=== PATIENT | female | born 1960 | race Hispanic/Latino ===

== ENCOUNTER → 2017-08-24 | Outpatient (CLI) | payer BC ==
[~2017-08-24] MED LIST: ASCO10007 PO; ASPI-555 PO; BETA2500 PO; BIOT10005 PO; CETI-101 PO; CHOL200074 PO; COD1CAPS7 PO; CRAN1CAP5 PO; CYAN10009 PO; CYAN100T PO; CYCL30DR OP; FLUT16H NASAL; GLUC-114 PO; GLUC-206 PO; LATA2.5D2 OU; LOSA50TA37 PO; MAGN400C PO; MECL-111 PO; TOLT2TAB PO; UBID50TA3 PO; VITA100049 PO
== END ==
LOC: LAB 09:30
PROVIDERS: ATTEND Internal Medicine
DX: Z11.59 Encounter for screening for other viral diseases (principal); R19.7 Diarrhea, unspecified
CPT/HCPCS: 36415; 82784; 83516; 87520

== ENCOUNTER 2017-09-15 07:28 | Day surgery (SDC) | payer BC ==
[~2017-09-15] VITALS: Ht 152.4 cm; Wt 75.3 kg
[~2017-09-15 07:28] MED LIST changes: +SODIUM CHLORIDE 0.9% 1000ML 1,000 ML IV ONE
[2017-09-15 08:36] VITALS: BP 151/70
== END 2017-09-15 10:15 ==
LOC: DAH 07:28 → ENDO 07:28
PROVIDERS: ATTEND Internal Medicine
DX: K63.89 Other specified diseases of intestine (principal); I10 Essential (primary) hypertension
CPT/HCPCS: 45380; A4606; J7030

== ENCOUNTER → 2018-05-09 | Outpatient (CLI) | payer BC ==
[~2018-05-09] MED LIST changes: +LOSA50TA25 PO; -LOSA50TA37 PO; -SODIUM CHLORIDE 0.9% 1000ML 1,000 ML IV ONE
[2018-05-09 17:16] LABS: CREATININE 0.9 mg/dL (0.5-1.5)
== END | disposition home or self-care (01) ==
LOC: LAB 16:35
PROVIDERS: ATTEND Neurological Surgery
DX: M54.16 Radiculopathy, lumbar region (principal); Z72.89 Other problems related to lifestyle
CPT/HCPCS: 36415; 82565; 84520

== ENCOUNTER → 2018-05-23 | Outpatient (CLI) | payer BC ==
[~2018-05-23] MED LIST changes: +GADODIAMIDE 10 MMOL/20 ML ML IV ONE
== END | disposition home or self-care (01) ==
LOC: RAH 12:06
PROVIDERS: ATTEND Neurological Surgery
DX: M51.17 Intervertebral disc disorders with radiculopathy, lumbosacral region (principal); M47.27 Other spondylosis with radiculopathy, lumbosacral region; M48.07 Spinal stenosis, lumbosacral region
CPT/HCPCS: 72158; A9579

== ENCOUNTER → 2018-09-26 | Outpatient (CLI) | payer BC ==
[~2018-09-26] VITALS: Ht 152.4 cm; Wt 74.8 kg
[~2018-09-26] MED LIST changes: +CYAN-52 PO; -CYAN10009 PO; -CYAN100T PO; +CYAN100T3 PO; -GADODIAMIDE 10 MMOL/20 ML ML IV ONE; -LOSA50TA25 PO; +LOSA50TA64 PO; +REGADENOSON 0.4 MG/5 ML PF SYG IVP SCH
== END | disposition home or self-care (01) ==
LOC: SHCH 09:12
PROVIDERS: ATTEND Internal Medicine Cardiovascular Disease
DX: R07.9 Chest pain, unspecified (principal)
CPT/HCPCS: 78452; 93017; 96374; A9500 ×2; J2785

== ENCOUNTER → 2020-08-14 | Outpatient (CLI) | payer BC ==
[~2020-08-14] MED LIST changes: +ASCO100031 PO; -ASCO10007 PO; -ASPI-555 PO; +ASPI-556 PO; -BETA2500 PO; -CETI-101 PO; +CETI-89 PO; +COD1CAPS16 PO; -COD1CAPS7 PO; -CYAN100T3 PO; +CYAN100T45 PO; +GADODIAMIDE 10 MMOL/20 ML VIAL IV ONE; +LATA2.5D14 OU; -LATA2.5D2 OU; -MECL-111 PO; +MECL-160 PO; -REGADENOSON 0.4 MG/5 ML PF SYG IVP SCH; +[UNRECOGNIZED DRUG - CODE] PO
== END | disposition home or self-care (01) ==
LOC: RAH 10:00
PROVIDERS: ATTEND Case Manager/Care Coordinator
DX: M47.22 Other spondylosis with radiculopathy, cervical region (principal); M48.02 Spinal stenosis, cervical region
CPT/HCPCS: 72156; A9579

== ENCOUNTER 2020-10-26 23:55 | Emergency (ER) | payer BC ==
[~2020-10-26 23:55] MED LIST changes: +BEPO10DR OP; +BILB100C PO; -CETI-89 PO; -CYAN100T45 PO; +DIPH-706 PO; -GADODIAMIDE 10 MMOL/20 ML VIAL IV ONE; +GING550C5 PO; -GLUC-114 PO; -GLUC-206 PO; +LORA10TA7 PO; -MECL-160 PO; +OMEP40CA13 PO; +RIBO100T5 PO; +SIME125C PO; +SOLI5TAB6 PO; -TOLT2TAB PO; +[UNRECOGNIZED DRUG - CODE] PO; +[UNRECOGNIZED DRUG - OTHER] PO; +[UNRECOGNIZED DRUG - OTHER] PO
[2020-10-27 00:49] LABS: BASOPHILS % (AUTO) 0.2 % (0.0-5.0); EOSINOPHILS % (AUTO) 0.3 % (0.0-8.0); HEMATOCRIT 38.9 % (36-48); LYMPHOCYTES % (AUTO) 8.3 % (21.0-51.0); MEAN CORPUSCULAR HEMOGLOBIN 30.6 pg (27.0-33.0); MEAN CORPUSCULAR HGB CONC 31.9 g/dL (32.0-36.0); MONOCYTES % (AUTO) 7.2 % (3.0-13.0); NEUTROPHILS % (AUTO) 83.6 % (40.0-77.0); PLATELET COUNT (AUTO) 288 K/uL (130-400); RED BLOOD CELL COUNT(AUTO) 4.05 MIL/uL (4.00-5.50); RED CELL DISTRIBUTION WIDTH 12.8 % (11.0-15.5); WHITE BLOOD COUNT (AUTO) 21.4 K/uL (4.8-10.8)
[2020-10-27 00:54] LABS: POTASSIUM 4.2 mmol/L (3.5-5.1)
[2020-10-27 00:59] LABS: ALBUMIN 4.4 g/dL (3.5-5.0); BILIRUBIN,TOTAL 0.3 mg/dL (0.2-1.0); TOTAL PROTEIN, SERUM 8.4 g/dL (6.0-8.3)
[2020-10-27] MEDS ORDERED: METOCLOPRAMIDE 10 MG/2 ML VIAL ONE (01:10)
[2020-10-27] MEDS ORDERED: PANTOPRAZOLE 40 MG/VIAL ONE (01:11)
[2020-10-27] MEDS ORDERED: FAMOTIDINE/PF 20 MG/2 ML VIAL IV ONE (01:12)
[2020-10-27] MEDS ORDERED: SODIUM CHLORIDE 0.9% 1000ML 1,000 ML IV ONE (01:18)
[2020-10-27] MEDS ORDERED: IOHEXOL-350 75 ML VIAL IV ONE (04:09)
[2020-10-27 04:12] LABS: BASOPHILS % (AUTO) 0.3 % (0.0-5.0); EOSINOPHILS % (AUTO) 0.4 % (0.0-8.0); LYMPHOCYTES % (AUTO) 13.1 % (21.0-51.0); MEAN CORPUSCULAR HEMOGLOBIN 30.9 pg (27.0-33.0); MEAN CORPUSCULAR HGB CONC 32.7 g/dL (32.0-36.0); MEAN CORPUSCULAR VOLUME 94.3 fL (79-99); MONOCYTES % (AUTO) 6.4 % (3.0-13.0); NEUTROPHILS % (AUTO) 79.5 % (40.0-77.0); PLATELET COUNT (AUTO) 245 K/uL (130-400); RED CELL DISTRIBUTION WIDTH 12.8 % (11.0-15.5); WHITE BLOOD COUNT (AUTO) 14.1 K/uL (4.8-10.8)
== END 2020-10-27 05:41 | disposition home or self-care (01) ==
LOC: EDH 23:55
DX: K29.00 Acute gastritis without bleeding (principal); E86.0 Dehydration; R19.7 Diarrhea, unspecified; I10 Essential (primary) hypertension; Z98.890 Other specified postprocedural states
CPT/HCPCS: 36415; 74177; 76705; 80053; 83690; 84484; 85025 ×2; 93005; 96361; 96374; 96375; 99285; C9113; J2765; J3490; J7030; Q9967

== ENCOUNTER → 2021-05-27 | Outpatient (CLI) | payer BC ==
[~2021-05-27] MED LIST changes: -OMEP40CA13 PO; +OMEP40CA21 PO
== END | disposition home or self-care (01) ==
LOC: RAH 08:21
PROVIDERS: ATTEND Physician Assistant Medical
DX: K82.4 Cholesterolosis of gallbladder (principal)
CPT/HCPCS: 76700

== ENCOUNTER 2021-08-24 17:08 | Emergency (ER) | payer BC ==
[~2021-08-24] VITALS: Ht 152.4 cm; Wt 73.5 kg
[2021-08-24] MEDS ORDERED: IBUPROFEN 600 MG TABLET PO ONE (17:30)
[2021-08-24 18:10] VITALS: BP 142/76
== END 2021-08-24 18:16 | disposition home or self-care (01) ==
LOC: EDH 17:08
DX: S90.122A Contusion of left lesser toe(s) without damage to nail, initial encounter (principal); M79.675 Pain in left toe(s); I10 Essential (primary) hypertension; Z79.899 Other long term (current) drug therapy; Z79.82 Long term (current) use of aspirin; Z98.890 Other specified postprocedural states; W01.0XXA Fall on same level from slipping, tripping and stumbling without subsequent striking against object, initial encounter; Y93.89 Activity, other specified; Y92.89 Other specified places as the place of occurrence of the external cause; Y99.8 Other external cause status
CPT/HCPCS: 73660

== ENCOUNTER → 2021-10-17 | Outpatient (CLI) | payer OTHER | LOC: RAH 13:52 | PROVIDERS: ATTEND Physician Assistant | DX: S33.5XXD Sprain of ligaments of lumbar spine, subsequent encounter (principal); M48.061 Spinal stenosis, lumbar region without neurogenic claudication; M47.817 Spondylosis without myelopathy or radiculopathy, lumbosacral region; X58.XXXD Exposure to other specified factors, subsequent encounter; M48.07 Spinal stenosis, lumbosacral region | CPT/HCPCS: 72148 ==

== ENCOUNTER 2022-05-10 14:27 | Emergency (ER) | payer BC, OTHER ==
[~2022-05-10] VITALS: Ht 152.4 cm; Wt 76.2 kg
[2022-05-10 14:54] LABS: BASOPHILS % (AUTO) 0.4 % (0.0-5.0); EOSINOPHILS % (AUTO) 0.8 % (0.0-8.0); HEMATOCRIT 39.4 % (36-48); LYMPHOCYTES % (AUTO) 3.9 % (21.0-51.0); MEAN CORPUSCULAR HEMOGLOBIN 30.7 pg (27.0-33.0); MEAN CORPUSCULAR HGB CONC 32.7 g/dL (32.0-36.0); MEAN CORPUSCULAR VOLUME 93.8 fL (79-99); NEUTROPHILS % (AUTO) 89.4 % (40.0-77.0); PLATELET COUNT (AUTO) 344 K/uL (130-400); RED CELL DISTRIBUTION WIDTH 12.5 % (11.0-15.5); WHITE BLOOD COUNT (AUTO) 19.5 K/uL (4.8-10.8)
[2022-05-10 14:59] LABS: POTASSIUM 3.8 mmol/L (3.5-5.1)
[2022-05-10] MEDS ORDERED: ONDANSETRON 4MG INJ IVP ONE (15:00)
[2022-05-10 15:08] LABS: ALBUMIN 4.3 g/dL (3.5-5.0); TOTAL PROTEIN, SERUM 8.9 g/dL (6.0-8.3)
[2022-05-10] MEDS ORDERED: DIPH1TAB PO (15:08)
[2022-05-10] MEDS ORDERED: ONDA-104 PO (15:08)
[2022-05-10] MEDS ORDERED: DIPHENOXYLATE HCL/ATROPINE 2.5/0.025 MG TAB PO ONE (15:30)
[2022-05-10 15:49] VITALS: BP 132/54
== END 2022-05-10 15:48 | disposition home or self-care (01) ==
LOC: EDH 14:27
DX: A08.39 Other viral enteritis (principal); I10 Essential (primary) hypertension; M19.90 Unspecified osteoarthritis, unspecified site; Z79.82 Long term (current) use of aspirin; Z79.899 Other long term (current) drug therapy
CPT/HCPCS: 99284; 96374; 82150; 84484; 80053; 83690; 85025; 36415; 93005; J2405

== ENCOUNTER → 2023-07-22 | Outpatient (CLI) | payer BC ==
[~2023-07-22] MED LIST changes: +DIPH1TAB PO; +ONDA-104 PO
== END | disposition home or self-care (01) ==
LOC: RAH 07:36
PROVIDERS: ATTEND Physician Assistant Medical
DX: K80.20 Calculus of gallbladder without cholecystitis without obstruction (principal)
CPT/HCPCS: 76700

== ENCOUNTER → 2024-07-20 | Outpatient (CLI) | payer BC ==
[~2024-07-20] MED LIST changes: +COD1CAPS PO; -COD1CAPS16 PO; -VITA100049 PO; +VITA100059 PO
--- NOTE | 2024-07-20 12:35 | HMCIMG ---
US ABDOMINAL COMPLETE REASON: ruq pain COMPARISON: None FINDINGS: There is normal sonographic appearance of the liver. There are no focal mass lesions. The liver is not enlarged.There is a 4 mm gallbladder wall polyp, an incidental finding, there is no evidence of mass, stone or pericholecystic edema. There is 1.3 cm left renal cyst. Kidneys appear normal otherwise in size and appearance. There is no evidence of mass, stone or hydronephrosis. Spleen and common duct appear normal. Aorta and inferior vena cava appear normal. The pancreas appears normal as well. IMPRESSION: 1. No acute finding on abdomen sonogram.
== END | disposition home or self-care (01) ==
LOC: RAH 10:13
PROVIDERS: ATTEND Physician Assistant Medical
DX: N28.1 Cyst of kidney, acquired (principal); R10.11 Right upper quadrant pain; K82.4 Cholesterolosis of gallbladder
CPT/HCPCS: 76700

== ENCOUNTER → 2024-10-05 | Outpatient (CLI) | payer BC ==
--- NOTE | 2024-10-05 12:31 | HMCIMG ---
US ABDOMINAL COMPLETE HISTORY: Pain COMPARISON: None TECHNIQUE: Multiple transverse and longitudinal ultrasound images of the abdomen were obtained. FINDINGS: Abdominal aorta and inferior vena cava are unremarkable. The visualized portion of the pancreas is within normal limits. Liver measures 14 cm. There is gallbladder polyp measuring 5 x 2 x 3 mm. No gallstone is seen. Common duct measures 3 mm. No evidence of gallbladder wall thickening is seen. Both kidneys are seen. Right kidney measures 8.1 x 4.3 x 3.8 cm. Left kidney measures 9 x 5.1 x 4.7 cm. There is left renal cyst measuring 13 x 8 x 15 mm. No hydronephrosis is seen of the both kidneys. The spleen is grossly unremarkable. IMPRESSION: 1. No gallstone or ductal dilatation is seen. 2. No hydronephrosis is seen. Left renal cyst measuring 13 x 8 x 15 mm.
== END | disposition home or self-care (01) ==
LOC: RAH 07:26
PROVIDERS: ATTEND Student in an Organized Health Care Education/Training Program
DX: N28.1 Cyst of kidney, acquired (principal); R10.11 Right upper quadrant pain
CPT/HCPCS: 76700

== ENCOUNTER → 2024-10-09 | Outpatient (CLI) | payer BC ==
--- NOTE | 2024-10-09 10:33 | HMCIMG ---
NM HIDA WITH EF/CCK REASON: RUQ. COMPARISON: None TECHNIQUE: Hepatobiliary imaging study was performed with 7 mCi of technetium Choletec through intravenous route. Patient was given 1.5 mcg of CCK FINDINGS: Normal visualization of gallbladder and bowel activity noted within 1 hour. Gallbladder ejection fraction is normal at 85%. IMPRESSION: Normal hepatobiliary imaging study. Normal gallbladder ejection fraction at 85%.
== END | disposition home or self-care (01) ==
LOC: RAH 06:55
PROVIDERS: ATTEND Student in an Organized Health Care Education/Training Program
DX: R10.11 Right upper quadrant pain (principal)
CPT/HCPCS: 78227; A9537

== ENCOUNTER → 2025-03-26 | Outpatient (CLI) | payer BC ==
[~2025-03-26] MED LIST changes: -ASCO100031 PO; +ASCO10004 PO; -GING550C5 PO; -LATA2.5D14 OU; +LATA2.5D7 OU; +[UNRECOGNIZED DRUG - CODE] PO
--- NOTE | 2025-03-26 09:39 | HMCIMG ---
EXAM: US Abdomen, Right Upper Quadrant. CLINICAL HISTORY: CHOLESTEROLOSIS OF GB TECHNIQUE: Right upper quadrant sonography performed with image documentation. COMPARISON: 10/05. FINDINGS: LIVER: Within normal limits in size and echogenicity. No mass. GALLBLADDER: 6 mm gallbladder polyp. No cholelithiasis. COMMON BILE DUCT: Within normal limits in size. PANCREAS: The visualized pancreas appears within normal limits. The distal pancreas is obscured by bowel gas. RIGHT KIDNEY: Unremarkable. Normal renal contours. No renal mass or calculus. No hydronephrosis. MISCELLANEOUS: Follow-up ultrasound in 6 months recommended to assess for interval change. IMPRESSION: 1. 6 mm gallbladder polyp. 2. Follow-up ultrasound in 6 months recommended to assess for interval change. /Jean
== END | disposition home or self-care (01) ==
LOC: RAH 07:34
PROVIDERS: ATTEND Student in an Organized Health Care Education/Training Program
DX: K82.4 Cholesterolosis of gallbladder (principal)
CPT/HCPCS: 76705

== ENCOUNTER → 2025-04-12 | Outpatient (CLI) | payer BC ==
--- NOTE | 2025-04-12 16:02 | HMCIMG ---
SACRUM/COCCYX 2+VWS REASON: COCCYX PAIN TECHNIQUE: 3 views of the sacrum were obtained. FINDINGS: There is normal appearance of the sacrum and coccyx. There are no visible fractures. SI joints appear normal as does the symphysis pubis. Soft tissues appear unremarkable as well. Osteopenia of the osseous structure. IMPRESSION: 1. Normal views of the sacrum and coccyx. Osteopenia
== END | disposition home or self-care (01) ==
LOC: RAH 14:35
PROVIDERS: ATTEND Physician Assistant Medical
DX: M53.3 Sacrococcygeal disorders, not elsewhere classified (principal); M85.88 Other specified disorders of bone density and structure, other site
CPT/HCPCS: 72220

== ENCOUNTER 2025-06-17 21:13 | Emergency (ER) | payer BC ==
[~2025-06-17] VITALS: Ht 152.4 cm; Wt 60.8 kg
[2025-06-17 21:46] LABS: IMMATURE GRANULOCYTE ABSOLUTE 0.04 K/uL (0-1); NUCLEATED RED BLOOD CELLS 0.0 % (0.0-0.19); PLATELET COUNT (AUTO) 272 K/uL (130-400); RED BLOOD CELL COUNT(AUTO) 3.51 MIL/uL (4.00-5.50); RED CELL DISTRIBUTION WIDTH 13.2 % (11.0-15.5); WHITE BLOOD COUNT (AUTO) 12.7 K/uL (4.8-10.8)
--- NOTE | 2025-06-17 21:48 | ERN ---
General Chief Complaint: Chest Pain Stated Complaint: LEFT ARM PAIN PAIN, NECK PAIN, LEFT CHEST PAIN Time Seen by MD: 21:18 History of Present Illness Initial Comments 65-year-old female, history of diabetes, hypertension, who presents for left shoulder left neck left arm pain beginning about 36 hours ago. Patient denies any trauma or injury. She reports pain that started her in the shoulder incre ases with the movement and palpation. She took some Advil. Throughout the day it is now radiating to her neck and down her arm. It is severe pain specifically with movement. He is able to flex and extend and rotate the neck without any pain or discomfort. That has no pain with the clavicle or the trapezius area. She is able to flex and extend the elbow wrist. Neurovascularly intact. Pain is mostly in the shoulder increase with a any sort of movement. There was no redness or swelling of the shoulder. She denies any chest pains or shortness of breath. Denies any fevers or systemic illness. She has never had this before. Allergies: Coded Allergies: No Known Drug Allergies (Verified Allergy, 05/25/13) Home Meds Active Scripts Diphenoxylate HCl/Atropine (Lomotil Tablet) 1 Each Tablet, 1 TAB PO QIDP PRN for DIARRHEA for 5 Days, #10 TAB 0 Refills Prov:LENIN SAINZ MD 05/10/22 Ondansetron HCl (Ondansetron HCl) 4 Mg Tablet, 4 MG PO TIDP PRN for VOMITING, #20 TAB Prov:LENIN SAINZ MD 05/10/22 Reported Medications Cyclosporine (Restasis) 1 Each Droperette, 1 EACH OP BID, DROP 09/24/20 Glucosamine/MSM/Hyaluron Acid (Ykinglfezui-KBU-Xemvufmwrx Tab) 1 Each Tablet, 1500 MG PO AM, TAB 09/24/20 Bepotastine Besilate (Bepreve) 10 Ml Drops, 1 DROP OP BID, DROP 09/24/20 Solifenacin Succinate (Solifenacin Succinate) 5 Mg Tablet, 5 MG PO AM, TAB 09/24/20 [Inner Ear Balance] No Conflict Check, 1000 MG PO AM 09/24/20 Riboflavin (Vitamin B-2) 100 Mg Tablet, 200 MG PO AM, TAB 09/24/20 [Geronimo Sleep Gummies] No Conflict Check, 3 TAB.CHEW PO HS 09/24/20 Omeprazole (Omeprazole) 40 Mg Capsule.dr, 40 MG PO AM, CAP 09/24/20 Diphenhydramine HCl (Zzzquil) 25 Mg Capsule, 25 MG PO HS, CAP 09/24/20 Simethicone (Gas-X) 125 Mg Capsule, 250 MG PO AM, CAP 09/24/20 Bilberry (Bilberry) 100 Mg Capsule, 150 MG PO AM, CAP 09/24/20 Toña Root (Toña Root) 550 Mg Capsule, 1500 MG PO AM, CAP 09/24/20 Loratadine (Loratadine) 10 Mg Tablet, 10 MG PO AM, TAB 09/24/20 Beta-Carotene (Beta Carotene) 25,000 Unit Capsule, 7500 MCG PO DAILY, CAP 09/14/17 Cranberry Extract/Vit C (Azo Cranberry Softgel) 1 Each Capsule, 500 MG PO DAILY, CAP 09/14/17 Cholecalciferol (Vitamin D3) (Vitamin D-3) 2,000 Unit Capsule, 25 MCG PO DAILY, CAP 09/14/17 Biotin (Biotin) 10,000 Mcg Capsule, 28718 MCG PO DAILY, CAP 09/14/17 Cod Liver Oil (Cod Liver Oil) 1 Each Capsule, 830 MG PO DAILY, CAP 09/14/17 Cyanocobalamin (Vitamin B-12) (Vitamin B-12) 1,000 Mcg Tablet, 1000 MCG PO DAILY, TAB 09/14/17 Ascorbic Acid (Vitamin C) 1,000 Mg Tablet, 1000 MG PO DAILY, TAB 09/14/17 Magnesium Oxide (Magnesium) 400 Mg Capsule, 400 MG PO DAILY, CAP 09/14/17 Aspirin (Aspir 81) 81 Mg Tablet.dr, 81 MG PO DAILY, TAB 09/14/17 Ubidecarenone (Coq10) 50 Mg Tab.chew, 400 MG PO DAILY, TAB.CHEW 09/14/17 Vitamin E Mixed (Vitamin E) 1,000 Unit Capsule, 450 MG PO DAILY, CAP 09/14/17 Fluticasone Propionate (Flonase Nasal [place]) 50 Mcg/[place], 50 MCG NASAL HS, SPRAY 09/14/17 Latanoprost (Latanoprost) 2.5 Ml Drops, 0.005 % OU HS, DROP 09/14/17 Cyclosporine (Restasis) 1 Each Droperette, 0.05 % OP BID, DROP 09/14/17 Losartan Potassium (Losartan Potassium) 50 Mg Tablet, 100 MG PO HS, TAB 09/14/17 Past Medical History Past Medical History: Arthritis, Diabetes-Type II, High Cholesterol, Hypertension Past Surgical History: Other Surgical History Other: D AND C, BACK X 3, CARPAL TUNNEL RIGHT Family History Family History: HTN Social History Social History: Negative, Lives with family ROS Dictation CONSTITUTIONAL: No chills, no fever, no weakness, no diaphoresis, no malaise. HEAD/FACE: No signs of trauma. EENT: No eye pain, no blurred vision, no tearing, no double vision, no ear pain, no ear discharge, no nose pain, no nasal congestion, no throat pain, no throat swelling, no mouth pain. RESPIRATORY: No cough, no orthopnea, no SOB, no stridor, no wheezing. CARDIOVASCULAR: No chest pain, no edema, no palpitations, no syncope. GASTROINTESTINAL/ABDOMINAL: No abdominal pain, no constipation, no diarrhea, no nausea, no vomiting. GENITOURINARY: No abnormal discharge, no dysuria, no frequent urination, no hematuria. No complaints of pain in the genitals. MUSCULOSKELETAL: Right shoulder pain increase with movement and palpation INTEGUMENTARY: No change in color, no change in hair/nails, no dryness, no lesion, no lumps, no rash. NEUROLOGICAL/PSYCH: No anxiety, not depressed, no emotional problem, no headache, no numbness, no pre-existing deficit, no history of seizures, no tremors, no weakness. HEMATOLOGIC/LYMPHATIC: Not anemic, no history of blood clots, no apparent bleeding, no bruising, glands not swollen. All Systems Negative, Except as Noted. Physical Exam Physical Exam Dictation VITAL SIGNS: Reviewed. GENERAL APPEARANCE: Alert, oriented x3, no acute distress, obese. HEAD AND FACE: Non-traumatic. EYES: PERRL, pink conjunctivas, eyelid no trauma, anterior chamber clear. EARS: Pinnas intact and no signs of trauma or erythema. Ear canals clear and no discharge. TMs no erythema. NOSE: No discharge, no bleeding. OROPHARYNX: Mouth normal, teeth no caries, tongue pink. Pharynx clear, no erythema. Tonsils no exudates, no abscesses noted. Mucous membrane moist. NECK: Supple, non-tender, no thyromegaly, no masses, no JVD, no bruits. BREAST: Deferred. CHEST: No tenderness, no crepitus, no paradoxical movement, no retractions. LUNGS: Clear, well-ventilated, symmetric, no rales, no wheezing, no rhonchi, no stridor, good breath sounds bilaterally. HEART: Regular rate, regular rhythm, no murmur, no gallops. VASCULAR: No peripheral edema. ABDOMEN: Soft, positive bowel sounds, nondistended, no guarding, nontender, no rebound, no masses no hepatomegaly, no splenomegaly, no Ramos's sign, no hernias. RECTAL: Deferred. GENITAL: Deferred. NEUROLOGICAL: Normal speech, gross motor function intact, gross sensory function intact. MUSCULOSKELETAL: N painful movement of the shoulder, full range of motion of the neck, elbow, wrist. Neurovascularly intact distally. No redness or swelling to the shoulder. No obvious deformity or injury. EXTREMITIES: Nontender, full range of motion. SKIN: Color pink, dry, no turgor, no rash, no lacerations, no abrasions, no contusions. LYMPHATICS: Deferred. Results Laboratory and Microbiology Lab and Micro Result Laboratory Tests Test 06/17/25 21:24 06/17/25 21:27 Urine Color YELLOW (YELLOW) Urine Appearance CLEAR (CLEAR) Urine pH 5.0 (5.0-8.0) Urine Specific [place] 1.018 (1.001-1.031) Urine Protein NEGATIVE mg/dL (NEGATIVE) Urine Glucose (UA) NEGATIVE mg/dL (NEGATIVE) Urine Ketones NEGATIVE mg/dL (NEGATIVE) Urine Occult Blood NEGATIVE (NEGATIVE) Urine Nitrate NEGATIVE (NEGATIVE) Urine Bilirubin NEGATIVE mg/dL (NEGATIVE) Urine Urobilinogen 0.2 mg/dL (0.2-1.0) Urine Leukocyte Esterase 250 Aline/uL (NEGATIVE) H Urine RBC 11-25 /HPF (0-1) H Urine WBC 11-25 /HPF (0-1) H Urine Squamous Epithelial Cells RARE /HPF (0-2) Urine Bacteria RARE /HPF (None Seen) Urine Hyaline Casts 0-1 /LPF (0-1 /LPF) White Blood Count 12.7 K/uL (4.8-10.8) H Red Blood Count 3.51 MIL/uL (4.00-5.50) L Hemoglobin 11.3 g/dL (12.0-16.0) L Hematocrit 34.3 % (36-48) L Mean Corpuscular Volume 97.7 fL (79-99) Mean Corpuscular Hemoglobin 32.2 pg (27.0-33.0) Mean Corpuscular Hemoglobin Concent 32.9 g/dL (32.0-36.0) Red Cell Distribution Width 13.2 % (11.0-15.5) Platelet Count 272 K/uL (130-400) Mean Platelet Volume 11.6 fL (7.5-10.5) H Immature Granulocyte % (Auto) 0.3 % (0-1) Neutrophils (%) (Auto) 68.6 % (40.0-77.0) Lymphocytes (%) (Auto) 20.6 % (21.0-51.0) L Monocytes (%) (Auto) 9.2 % (3.0-13.0) Eosinophils (%) (Auto) 1.0 % (0.0-8.0) Basophils (%) (Auto) 0.3 % (0.0-5.0) Neutrophils # (Auto) 8.7 K/uL (1.8-7.7) H Lymphocytes # (Auto) 2.6 K/uL (1.0-4.8) Monocytes # (Auto) 1.2 K/uL (0.1-1.0) H Eosinophils # (Auto) 0.13 K/uL (0.00-0.70) Basophils # (Auto) 0.04 K/uL (0.00-0.20) Absolute Immature Granulocyte (auto 0.04 K/uL (0-1) Nucleated Red Blood Cells 0.0 % (0.0-0.19) Erythrocyte Sedimentation Rate 13 MM/HR (0-30) Sodium Level 141 mmol/L (136-145) Potassium Level 3.9 mmol/L (3.5-5.1) Chloride Level 105 mmol/L (101-111) Carbon Dioxide Level 27 mmol/L (21-32) Blood Urea Nitrogen 20 mg/dL (7-18) H Creatinine 1.2 mg/dL (0.5-1.0) H Glomerular Filtration Rate Calc 51 mL/min (>90) Random Glucose 106 mg/dL (70-105) H Total Calcium 9.3 mg/dL (8.5-10.1) Total Creatine Kinase 67 U/L (21-232) # Troponin I High Sensitivity < 4 ng/L (4-50) L C-Reactive Protein, Quantitative 21.40 mg/L (0.5-3.0) H MDM CC: Left shoulder pain, appears to be musculoskeletal in nature Historian: Patient Comorbidities: Arthritis, diabetes type 2, hypertension, dyslipidemia Limitations by social determinants of health: None Differential diagnosis: MSK type pain, soft tissue injury, fracture, cardiac disease, septic joint, gout, cellulitis, other Vital signs: Temp 98.4, initially tachycardic 108 due to pain that has improved in the ER without treatment. Blood pressure mildly elevated 161/87. Clinically there was no signs of base septic joint. She does have range of motion, but he has no major swelling or erythema. It appears to be coming from the shoulder. There was no signs of make injury elbow or wrist discomfort. It was not appear to be coming from the cervical spine. Cardiac workup is unremarkable. The EKG shows sinus tachycardia rate of 103, normal axis, good R-wave progression, intervals are stable no STEMI. Independently interpreted by me. Labs show leukocytosis 12.7 K, no shift no bands. Normocytic anemia hemoglobin 11.3. ESR is normal. Chemistries unremarkable. Creatinine 1.2 BUN of 22 GFR 51, patient reports CKD. Troponin is within normal limits. CRP is mildly elevated at 21. Urinalysis shows leuk esterase, no signs of infection at this time. Chest x-ray per my independent interpretation shows no cardiomegaly pleural effusions or focal infiltrates. Shoulder x-ray per my independent interpretation shows no bony abnormalities no fractures. Treatment in ED: IV Toradol, p.o. Onia. Lidocaine patch. I offered her IV morphine, but she declined. Placed in a sling. Symptoms most consistent with a MSK type pain. Very low suspicion for septic joint, significant trauma, cardiac disease. Symptoms most consistent with a MSK type pain. She is placed in a sling, we will discharge with a prescription for meloxicam a Onia to use as needed for pain. We will recommend ice. We will recommend PCP follow up. ED Course Orders Procedure Category Date Status Time Vital Signs Per CPOE 06/17/25 Transmitted Routine 21:19 Chest 1vw RAD 06/17/25 Resulted 21:19 12 Lead Ekg Tracing- EKG 06/17/25 Logged Technical 21:19 Oxygen By Nc/Pulse Ox CPOE 06/17/25 Transmitted 21:19 Maintain Iv CPOE 06/17/25 Transmitted 21:19 Iv Insertion CPOE 06/17/25 Transmitted 21:19 Cardiac Monitoring CPOE 06/17/25 Transmitted 21:19 Pulse Oximetry With CPOE 06/17/25 Transmitted Vs And Prn 21:19 Cbc With Differential LAB 06/17/25 Complete 21:19 Activity: Br W/Brp CPOE 06/17/25 Transmitted With Assist 21:19 Creatine Kinase, Total LAB 06/17/25 Complete 21:19 Troponin I High LAB 06/17/25 Complete Sensitivity 21:19 Urinalysis Profile LAB 06/17/25 Complete 21:19 Basic Metabolic Panel LAB 06/17/25 Complete 21:19 Ketorolac PHA 06/17/25 Complete Tromethamine 15mg/Ml 22:00 Hydrocodone/Apap PHA 06/17/25 Complete 5/325 (Onia 5/325mg) 22:00 *Nursing CPOE 06/17/25 Transmitted Communication: 21:45 Lidocaine (Lidocaine PHA 06/17/25 Complete Patch 4%) 22:00 Shoulder Comp 2+Vws Lt RAD 06/17/25 Taken 21:45 Erythrocyte Sed Rate LAB 06/17/25 Complete 21:45 Culture Urine BASIL 06/17/25 In Process 21:53 Crp Quantitative LAB 06/17/25 Complete 21:27 Morphine 4mg Syg PHA 06/17/25 In Process (Morphine 4mg Syg) 23:00 Current Medications Medications (Trade) Dose Ordered Sig/Bubba Route PRN Reason Start Time Stop Time Status Last Admin Dose Admin Acetaminophen/ Hydrocodone Bitart (NORco 5/325MG) 1 tab ONCE ONCE PO 06/17/25 22:00 06/17/25 22:01 DC 06/17/25 22:14 Ketorolac Tromethamine (toRADol) 15 mg ONCE ONCE IV 06/17/25 22:00 06/17/25 22:01 DC 06/17/25 22:13 Lidocaine (Lidocaine Patch 4%) 1 each ONCE ONCE TP 06/17/25 22:00 06/17/25 22:01 DC Morphine Sulfate (morPHINE 4MG SYG) 4 mg ONCE ONCE IVP 06/17/25 23:00 06/17/25 23:01 Vital Signs Date Time Temp Pulse Resp B/P (MAP) Pulse Ox O2 Delivery O2 Flow Rate FiO2 06/17/25 22:50 98.4 98 18 163/67 99 Room Air* 0 21 06/17/25 21:31 98.4 106 18 161/82 98 Room Air* 0 21 06/17/25 21:15 99.3 108 20 161/87 99 Room Air DX & DISP Disposition: Discharge Departure Impression: Primary Impression: Left shoulder pain Additional Impression: Musculoskeletal pain Condition: Stable Scripts Hydrocodone/Acetaminophen (Hydrocodon-Acetaminophen 5-325) 5 Mg-325 Mg Tablet 1-2 TAB PO Q6HPRN PRN for pain for 5 Days, #20 TAB 0 Refills Prov: RADHA EDWARDS DO 06/17/25 Meloxicam (Meloxicam) 15 Mg Tablet 15 MG PO DAILY PRN for PAIN for 10 Days, #10 TAB Prov: RADHA EDWARDS DO 06/17/25 Additional Instructions: Your symptoms are most consistent with musculoskeletal type pain or a soft tissue injury. Your cardiac workup was unremarkable. Your your blood work (CBC with differential, metabolic panel, troponin, ESR, CRP) shows some mild inflammation, but is otherwise unremarkable. The x-ray of your shoulder pain chest does not show any major abnormalities. Wear the sling as needed. You can remove the sling to be. I recommend that you ice your shoulder for 20 minutes 3 times per day for the next three days. I have prescribed meloxicam, which is a nonsteroidal anti-inflammatory pain medication. Take this once per day for pain and inflammation. Do not mix this medication with ibuprofen or naproxen or other NSAIDs. I have also prescribed Onia tabs to use for significant pain. You can take 1-2 tabs4 times a day as needed for severe pain. You can use Voltaren gel. This is [id number]. You can also use lidocaine patches, which are [id number]. As we discussed, I recommend that you follow up with the primary doctor in 3-5 days for re-evaluation. Return to the emergency department if you develop any fevers, redness to the area, severe pain despite the pain medication, or any other concerning symptom. Referrals: DRE MILLER (PCP) RADHA EDWARDS DO Jun 17, 2025 21:48
[2025-06-17 21:52] LABS: ADD UA MICROSCOPIC YES; APPEARANCE,URINE CLEAR (CLEAR); GLUCOSE, URINE (UA) NEGATIVE (NEGATIVE); LEUKOCYTE ESTERASE ,URINE 250 Leu/uL (NEGATIVE); NITRATE,URINE NEGATIVE (NEGATIVE); OCCULT BLOOD,URINE NEGATIVE (NEGATIVE)
[2025-06-17 21:58] LABS: CREATININE 1.2 mg/dL (0.5-1.0); GLOMERULAR FILTR. RATE CALC 51.0 mL/min (>90); GLUCOSE,RANDOM 106.0 mg/dL (70-105); SODIUM SERUM 141.0 mmol/L (136-145); UREA NITROGEN, BLOOD 20.0 mg/dL (7-18)
[2025-06-17 21:58] LABS: HYALINE CASTS, URINE 0-1 /LPF (0-1 /LPF); SQUAMOUS EPITHELIAL CELL,UR RARE /HPF (0-2)
[2025-06-17 22:08] LABS: CREATINE KINASE, TOTAL 67.0 U/L (21-232)
--- NOTE | 2025-06-17 22:13 | HMCIMG ---
EXAM: CR Chest, 1 View. CLINICAL HISTORY: CHEST PAIN COMPARISON: None provided. FINDINGS: LUNGS: There is no mass, infiltrate, or acute pulmonary abnormality. PLEURAL SPACES: No evidence of pleural effusion or pneumothorax. MEDIASTINUM: Cardiac size and mediastinal contours within normal limits. BONES: No acute osseous abnormality. IMPRESSION: No acute cardiopulmonary pathology is evident. /[place]
[2025-06-17] MEDS: LIDOCAINE 4% ADH..PATCH TP ONE (22:14)
[2025-06-17] MEDS: HYDROcodone/APAP 5/325 1 TAB TABLET PO ONE (22:14)
--- NOTE | 2025-06-17 22:46 | NUR ---
THE PATIENT HAS DECLINED RECEIVING MORPHINE FOR PAIN RELEIF STATING "I DO NOT WANT TO GET DIZZY AND SLEEPY." ER MD MADE AWARE.
--- NOTE | 2025-06-17 22:49 | NUR ---
PER ER MD. AN ICE PACK WAS PLACED IN A PILLOW CASE AND PLACED ON THE PATIENT'S LEFT SHOULDER FOR PAIN RELIEF. THE LEFT ARM WAS PLACED IN A SLING.
[2025-06-17 22:50] VITALS: BP 163/67; PULSE 98; RESP 18; TEMP 98.4; O2SAT 99
[2025-06-17] MEDS ORDERED: HYDR-4060 PO (22:57)
[2025-06-17] MEDS ORDERED: MELO-108 PO (22:57)
--- NOTE | 2025-06-17 23:19 | HMCIMG ---
EXAM: CR Left Shoulder, 2 views. CLINICAL HISTORY: Pain. COMPARISON: None provided. FINDINGS: No acute fracture or aggressive appearing osseous lesion. Mild osteoarthritis in the glenohumeral joint. Unremarkable acromioclavicular joint. The soft tissues are unremarkable. Metal implant in the cervical spine. IMPRESSION: No acute bony abnormality is evident. Mild osteoarthritis in the glenohumeral joint. /[place]
--- NOTE | 2025-06-18 07:09 | EKG ---
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
--- NOTE | 2025-06-19 11:20 | NUR ---
UPON FURTHER REVIEW OF CULTURE RESULTS BY DR. CASTRO, PT NEEDS RX FOR LEVOFLOXACIN 500MG PO DAILY X5 DAYS. SPOKE TO PT OVER THE PHONE, WILL CALL IN RX TO PTS PHARM[facility]Y OF CHOICE ([facility] IN [facility] [phone])
== END 2025-06-17 23:15 | disposition home or self-care (01) ==
LOC: EDH 21:13
DX: M25.512 Pain in left shoulder (principal); M54.2 Cervicalgia; M79.602 Pain in left arm; E11.9 Type 2 diabetes mellitus without complications; E78.00 Pure hypercholesterolemia, unspecified; I10 Essential (primary) hypertension; M19.90 Unspecified osteoarthritis, unspecified site; Z79.82 Long term (current) use of aspirin; Z79.621 Long term (current) use of calcineurin inhibitor
CPT/HCPCS: 99285; 71045; 96374; 82550; 84484; 80048; 85025; 85651; 87086; 87186; 86140; 81001; 36415; 73030; 93005; J1885; J2270